=== PATIENT | female | born 1955 | race Caucasian/White ===

== ENCOUNTER 2017-02-17 06:01 | Day surgery (SDC) | payer BC ==
[~2017-02-17] VITALS: Ht 177.8 cm; Wt 94.8 kg
[2017-02-17] VITALS (10 sets, daily range): BP systolic 119–136; BP diastolic 62–79
[~2017-02-17 06:01] MED LIST: PANTOPRAZOLE SO40 MG ORAL
[2017-02-17] MEDS ORDERED: cefOXitin Sod 1 GM in D5W 55 ML IVPB SCH (07:00)
[2017-02-17] MEDS ORDERED: cefOXitin 2gm Inj ONE (07:13)
[2017-02-17] MEDS ORDERED: Propofol 10mg/ml 20ml IV ONE (07:13)
--- NOTE | 2017-02-17 07:38 | Anethesia Preoperative Eval ---
Anesthesia Pre-op PMH/ROS General Date of Evaluation: Feb 17, 2017 Time of Evaluation: 07:35 Anesthesiologist: Paul ASA Score: ASA 2 Mallampati Score Class I : Soft palate, uvula, fauces, pillars visible Class II: Soft palate, uvula, fauces visible Class III: Soft palate, base of uvula visible Class IV: Only hard plate visible Mallampati Classification: Class II Surgeon: Sarmad Diagnosis: Postmenopausal bleeding Surgical Procedure: D&C hysteroscopy Anesthesia History: PONV Family History: no anesthesia problems Allergies: Coded Allergies: ACETAMINOPHEN (Verified Adverse Reaction, Intermediate, vausea; vomiting, 02/16/17) HYDROCODONE (Verified Adverse Reaction, Intermediate, vausea; vomiting, ) Medications: see eMAR Past Medical History Cardiovascular: Reports: HTN - borderline, Denies: CAD, MA, arrhythmia, other, valve dz Pulmonary: Denies: COPD, ASHLY, asthma, other Gastrointestinal/Genitourinary: Reports: GERD, Denies: CRI, ESRD, other Neurologic/Psychiatric: Denies: CVA, TIA, dementia, depression/anxiety, other Endocrine: Denies: DM, hypothyroidism, other, steroids HEENT: Denies: [place] (L), [place] (R), cataract (L), cataract (R), glaucoma, other Hematology/Immune: Denies: DVT, anemia, bleeding disorder, other Musculoskeletal/Integumentary: Denies: DDD, DJD, OA, RA, edema, other Other: other - overweight PMH Narrative: as above PSxH Narrative: D&C Anesthesia Pre-op Phys. Exam Physician Exam Last Vital Signs Date Time Temp Pulse Resp B/P Pulse Ox O2 Delivery O2 Flow Rate FiO2 02/17/17 06:27 97.8 73 18 132/74 97 Room Air Constitutional: NAD Neurologic: CN 2-12 intact Cardiovascular: RRR, no M/R/G Respiratory: CTA Gastrointestinal: S/NT/ND Airway Exam Mallampati Score: Class II MO: full Neck: flexible ROM: full Teeth: intact Dentures: no lower, no upper Anesthesia Pre-op A/P Labs see chart Studies Pre-op Studies: EKG - NSR Risk Assessment & Plan Assessment: ASA 2 Plan: GA with LMA PONV prevention Status Change Before Surgery: No Pre-Antibiotics Drug: Cefoxitin 2gr. Given Within 1 Hr of Incision: Yes Time Given: 07:38 LATRELL BENEDICT M.D. Feb 17, 2017 07:38
[2017-02-17] MEDS ORDERED: LR 1000ml 1,000 ML IVLG SCH (07:40)
[2017-02-17] MEDS ORDERED: Midazolam 2mg/2ml Inj ONE (07:40)
[2017-02-17] MEDS ORDERED: Ketorolac 30mg Inj ONE (07:40)
[2017-02-17] MEDS ORDERED: LR 1000ml ONE (07:40)
[2017-02-17] MEDS ORDERED: fentaNYL 100 mcg/2 mL IV ONE (07:40)
[2017-02-17] MEDS ORDERED: Metoclopramide 10mg/2ml Inj IVP PRN (07:45)
[2017-02-17] MEDS ORDERED: Meperidine 25mg/0.5ml Inj IV PRN (07:45)
[2017-02-17] MEDS ORDERED: DiphenhydrAMINE 50mg/ml Inj IVP PRN ×2 (07:45→08:00)
[2017-02-17] MEDS ORDERED: Ketorolac 30mg Inj IV PRN (07:45)
[2017-02-17] MEDS ORDERED: Hydromorphone 0.5mg/0.5ml inj IVP PRN (07:45)
--- NOTE | 2017-02-17 07:54 | Pre-Procedure Note/Attestation ---
Pre-Procedure Note/Attestation Complete Prior to Procedure Planned Procedure: not applicable Procedure Narrative: Dilation and curettage/ hysteroscopy/ possible resectoscope Indications for Procedure Pre-Operative Diagnosis: endometrial hyperplasia or polyp Attestation I attest that I discussed the nature of the procedure; its benefits; risks and complications; and alternatives (and the risks and benefits of such alternatives ), prior to the procedure, with the patient (or the patient's legal technical sales representative). I attest that, if there was a reasonable possibility of needing a blood transfusion, the patient (or the patient's legal technical sales representative) was given the [facility] standardized written summary, pursuant to the Beto Zenia Blood Safety Act ([place] Health and Safety Code # 1645, as amended). I attest that I re-evaluated the patient just prior to the surgery and that there has been no change in the patient's H&P, except as documented below: BREA BEGUM Feb 17, 2017 07:54
[2017-02-17] MEDS ORDERED: D5 1/2NS 1,000 ML IV SCH (08:00)
[2017-02-17] MEDS ORDERED: Norco 5mg/325mg tab ORAL PRN (08:00)
[2017-02-17] MEDS ORDERED: HYDROmorphone 1mg/ml Carpuject SUBQ PRN (08:00)
[2017-02-17] MEDS ORDERED: Sorbitol 2000ml Irrigation IRRIG ONE (08:34)
[2017-02-17] MEDS ORDERED: NS Irrig 1000ml IRRIG ONE (08:34)
--- NOTE | 2017-02-17 08:57 | Brief Operative Note ---
Immediate Post Operative Note Operative Note Pre-op Diagnosis: endometrial hyperplasia or polyp Post-op Diagnosis: same as pre-op plus Anesthesia: general Specimen: yes Complications: none Condition: stable Estimated Blood Loss: minimal BREA BEGUM Feb 17, 2017 08:57
--- NOTE | 2017-02-17 09:05 | Immediate Post-Op Evaluation ---
Immediate Post-Op Evalulation Immediate Post-Op Evalulation Procedure: D&C Hysteroscopy, polipectomy Date of Evaluation: Feb 17, 2017 Time of Evaluation: 09:03 IV Fluids: 1000 Blood Products: none Estimated Blood Loss: <50 Urinary Output: 400 Blood Pressure Systolic: 136 Blood Pressure Diastolic: 72 Pulse Rate: 68 Respiratory Rate: 20 O2 Sat by Pulse Oximetry: 99 Temperature (Fahrenheit): 97.6 Pain Score (1-10): 2 Nausea: No Vomiting: No Complications none Patient Status: reacts, patent, none Hydration Status: adequate LATRELL BENEDICT M.D. Feb 17, 2017 09:05
--- NOTE | 2017-02-17 12:00 | Operative Note - Dictated ---
PREOPERATIVE DIAGNOSIS: Endometrial hyperplasia versus polyp. POSTOPERATIVE DIAGNOSIS: Polyp versus submucosal fibroid. ESTIMATED BLOOD LOSS: Minimal. Sorbitol deficit: 200 mL. ANESTHESIA: General. ANESTHESIOLOGIST: Zachariah Miller M.D. SURGEON: Veronica Wharton M.D. PROCEDURE IN DETAIL: After ensuring informed consent, the patient was taken to the operating room where general anesthesia was induced. The patient was sterilely prepped and draped. Weighted speculum was placed in the vagina. Cervix was dilated with an 8 Hegar dilator. A diagnostic hysteroscope was placed inside the uterine cavity. A large posterior wall lesion was observed that was partially cystic and partially solid in nature. Next, attempt was made to remove the lesion with polyp forceps and when that failed, resectoscope was called for. Normal saline was allowed to escape. The cervix was dilated with a 10 Hegar dilator. The resectoscope was placed inside the uterine cavity and under direct visualization, the intracavitary lesion was resected in multiple passes. At the end, the posterior wall of the uterus appeared completely clear. Specimen was removed. Excellent hemostasis was assured. At the end of the procedure, all instrument and lap counts were correct x3 . The patient was taken to the recovery area in stable condition and breathing on her own. Veronica Wharton M.D. DR: CHACHO JOB#: [id number] CC: [id number]
--- NOTE | 2017-02-17 12:01 | 48 Hour Post Anesthesia Eval ---
Post Anesthesia Evaluation Procedure: D&C Hysteroscopy, polipectomy Date of Evaluation: Feb 17, 2017 Time of Evaluation: 11:59 Blood Pressure Systolic: 119 0: 65 Pulse Rate: 76 Respiratory Rate: 20 Temperature (Fahrenheit): 97.6 O2 Sat by Pulse Oximetry: 98 Airway: patent Nausea: No Vomiting: No Pain Intensity: 2 Hydration Status: adequate Cardiopulmonary Status: stable Mental Status/LOC: patient returned to baseline Follow-up Care/Observations: n/a Post-Anesthesia Complications: none Follow-up care needed: ready to discharge LATRELL BENEDICT M.D. Feb 17, 2017 12:01
== END 2017-02-17 12:00 | disposition home or self-care (01) ==
LOC: SUR 06:01
DX: N84.0 Polyp of corpus uteri (principal); K21.9 Gastro-esophageal reflux disease without esophagitis; R03.0 Elevated blood-pressure reading, without diagnosis of hypertension; E66.3 Overweight; Z68.34 Body mass index [BMI] 34.0-34.9, adult; Z88.6 Allergy status to analgesic agent; Z88.5 Allergy status to narcotic agent
CPT/HCPCS: 58558; J0690; J0694; J1885; J2250; J2405; J2704; J3010; J7120; 94003; 94150